=== PATIENT | male | born 1945 | race Two or more races ===

== ENCOUNTER 2020-01-13 13:22 | Emergency (ER) | payer OTHER ==
[~2020-01-13] VITALS: Ht 165.1 cm; Wt 80.0 kg
[~2020-01-13 13:22] MED LIST: AMLO5TAB4 PO; ATOR40TA70 PO; AZEL6DRO5 EACHEYE; BRIM15DR8 EACHEYE; CYAN50003 PO; FAMO-135 PO; FERR325T6 PO; FINA1TAB18 PO; FOLI-43 PO; GABA-531 PO; GLIP5TAB12 MT; HYDR-4001 MT; HYDR100T26 MT; METO25TA6 MT; MOXI3DRO12 EACHEYE; MULT-1146 PO; TAMS-11 PO; TURM500C6 PO
[2020-01-13 15:11] LABS: BASOPHILS % 0.2 % (0.0-2.0); EOSINOPHILS % 1.4 % (0.0-5.0); HEMATOCRIT. 29.1 % (42.0-52.0); HEMOGLOBIN. 9.8 g/dL (14.0-18.0); LYMPHOCYTES % 7.3 % (20.0-50.0); MEAN CORPUSCULAR HEMOGLOBIN 31.3 pg (28.0-32.0); MEAN CORPUSCULAR VOLUME 92.2 fL (80.0-94.0); MEAN PLATELET VOLUME 7.5 fl (7.4-10.4); MONOCYTES % 5.3 % (2.0-8.0); NEUTROPHILS % 85.8 % (40.0-76.0); PLATELET 470 x1000/uL (130-400); RED BLOOD CELL COUNT 3.15 mill/uL (4.7-6.1); RED CELL DISTRIBUTION WIDTH 16.4 % (11.6-14.6)
[2020-01-13 15:17] LABS: CHLORIDE 102 mEq/L (98-107)
[2020-01-13 15:20] LABS: INR 1.1; PROTHROMBIN TIME 11.4 sec (9.6-11.0)
[2020-01-13 15:30] LABS: CLARITY URINE CLEAR (CLEAR); COLOR URINE YELLOW (YELLOW); KETONES URINE NEGATIVE (NEGATIVE); LEUKOCYTE ESTERASE URINE NEGATIVE (NEGATIVE); NITRITE URINE NEGATIVE (NEGATIVE); OCCULT BLOOD URINE NEGATIVE (NEGATIVE); PH URINE 5.5 (4.5-8.0); PROTEIN URINE 1+ (NEGATIVE); SPECIFIC GRAVITY URINE 1.016 (1.005-1.030); UROBILINOGEN URINE 0.2 E.U./dL (0.2-1.0)
[2020-01-13] MEDS ORDERED: SODIUM CHLORIDE 0.9% 500 ML IV ONE (15:45)
[2020-01-13 21:25] VITALS: BP 163/67
== END 2020-01-13 22:42 | disposition short-term general hospital (02) ==
LOC: ER 13:22 → CANBEDREQ 22:30 → ER 22:42
DX: G93.40 Encephalopathy, unspecified (principal); I11.0 Hypertensive heart disease with heart failure; I50.9 Heart failure, unspecified; E11.9 Type 2 diabetes mellitus without complications; R41.82 Altered mental status, unspecified; Z79.899 Other long term (current) drug therapy
CPT/HCPCS: 36415; 70450; 71045; 80053; 81003; 83605; 83880; 84145; 84484; 85025; 85610; 87040; 87086; 93005; 96360; 96361; 99285; J7040